=== PATIENT | male | born 1980 | race Caucasian/White ===

== ENCOUNTER 2017-04-14 12:42 | Emergency (ER) | payer OTHER ==
[~2017-04-14] VITALS: Wt 93.9 kg
[~2017-04-14 12:42] MED LIST: ANAPROX DS550 MG PO; CLEOCIN150 MG PO; CLINDAMYCIN HC300 MG PO; CYCLOBENZAPRINE10 MG PO; EES400 MG PO; HYDROCODONE BIT1 T11 PO; IBUPROFEN; MACROBID100 M1 PO; Motrin,Rufen800 MG PO; NORFLEX100 MG PO; PERCOCET 325 MG1 TA2 PO; VICODIN 5-3001 EACH PO; VICODIN 5/500 505 MG PO; VICODIN ES 7501 TAB PO; VOLTAREN50 M1 PO
== END 2017-04-14 14:21 | disposition home or self-care (01) ==
LOC: ED 12:42
DX: S63.501A Unspecified sprain of right wrist, initial encounter (principal); F17.200 Nicotine dependence, unspecified, uncomplicated; Z88.0 Allergy status to penicillin; Z88.1 Allergy status to other antibiotic agents; Z91.040 Latex allergy status; W10.9XXA Fall (on) (from) unspecified stairs and steps, initial encounter; Y93.89 Activity, other specified; Y92.9 Unspecified place or not applicable; Y99.9 Unspecified external cause status

== ENCOUNTER 2017-09-23 23:32 | Emergency (ER) | payer OTHER ==
[~2017-09-23] VITALS: Ht 154.9 cm; Wt 93.9 kg
[2017-09-24 00:01] LABS: HEMATOCRIT 50.7 % (42.0-52.0); HEMOGLOBIN 17.2 g/dl (14.0-18.0); MEAN CORPUSCULAR HGB 30.9 pg (27.0-31.0); MEAN CORPUSCULAR HGB CONC 33.9 g/dl (33.0-37.0); MEAN PLATELET VOLUME 10.4 fl (9.6-12.3); PLATELET COUNT AUTOMATED 346 10*3/uL (130-400); RED BLOOD COUNT 5.57 10*6/uL (4.50-5.90); RED CELL DISTRI WIDTH 13.2 % (0-14.5); WHITE BLOOD COUNT 15.4 10*3/uL (4.8-10.8)
[2017-09-24 00:19] LABS: BILIRUBIN NEGATIVE (NEGATIVE); BLOOD TRACE-LYSED (NEGATIVE); CLARITY CLEAR (CLEAR); COLOR YELLOW (YELLOW); GLUCOSE NEGATIVE (NEGATIVE); KETONE NEGATIVE (NEGATIVE); LEUKO ESTERASE TRACE (NEGATIVE); NITRITE NEGATIVE (NEGATIVE); SPECIFIC GRAVITY <= 1.005 (1.005-1.030); UROBILINOGEN 0.2 E.U./dl (0.2-1.0)
[2017-09-24 00:20] LABS: ALBUMIN 3.8 gm/dl (3.1-4.5); ALKALINE PHOSPHATASE 102 U/L (45-117); BUN 10 mg/dl (7-24); CHLORIDE 107 mmol/L (98-107); CREATININE 1.19 mg/dL (0.70-1.30); POTASSIUM 4.1 mmol/L (3.5-5.1); SGOT/AST 31 IU/L (3-35); SGPT/ALT 48 U/L (12-78); SODIUM 141 mmol/L (136-145); TOTAL PROTEIN 7.9 gm/dL (6.4-8.2)
[2017-09-24 00:23] LABS: ACETAMINOPHEN (TYLENOL) < 2.0 ug/ml (10-30)
[2017-09-24 00:30] LABS: URINE AMPHETAMINES < 1000 (1000ng/ml); URINE BARBITURATES < 200 (200ng/ml); URINE BENZODIAZEPINES < 200 (200ng/ml); URINE CANNABINOIDS (THC) < 50 (50ng/ml); URINE COCAINE < 300 (300ng/ml); URINE METHADONE < 300 (300ng/ml); URINE OPIATES < 300 (300ng/ml)
[2017-09-24 00:36] LABS: ATYPICAL LYMPHS 3 % (0-0); BASOPHILS 1 % (0-1); PLATELET SUFFICIENCY NORMAL (NORMAL); TOTAL CELLS COUNTED 100 #CELLS
[2017-09-24 00:37] LABS: URINE PHENCYCLIDINE < 25 (25ng/ml)
== END 2017-09-24 18:23 | disposition home health service (06) ==
LOC: ED 23:32
PROVIDERS: Student in an Organized Health Care Education/Training Program
DX: R45.851 Suicidal ideations (principal); F17.200 Nicotine dependence, unspecified, uncomplicated; Z88.0 Allergy status to penicillin; Z88.1 Allergy status to other antibiotic agents; Z91.040 Latex allergy status; Z79.899 Other long term (current) drug therapy

== ENCOUNTER 2019-03-09 05:22 | Emergency (ER) | payer SELFPAY ==
[2019-03-09 06:26] LABS: BILIRUBIN NEGATIVE (NEGATIVE); BLOOD 2+ (NEGATIVE); CLARITY CLOUDY (CLEAR); COLOR YELLOW (YELLOW); GLUCOSE NEGATIVE (NEGATIVE); KETONE NEGATIVE (NEGATIVE); LEUKO ESTERASE 2+ (NEGATIVE); NITRITE NEGATIVE (NEGATIVE); SPECIFIC GRAVITY 1.025 (1.005-1.030); UROBILINOGEN 0.2 E.U./dl (0.2-1.0)
[2019-03-09 06:39] LABS: RBC 21-30 rbc/hpf (0-2); WBC TNTC wbc/hpf (0-5)
== END 2019-03-09 06:21 | disposition home or self-care (01) ==
LOC: ED 05:22
PROVIDERS: Emergency Medicine
DX: R30.9 Painful micturition, unspecified (principal); R36.9 Urethral discharge, unspecified; Z20.2 Contact with and (suspected) exposure to infections with a predominantly sexual mode of transmission; Z88.0 Allergy status to penicillin; Z88.1 Allergy status to other antibiotic agents; Z91.040 Latex allergy status; Z79.899 Other long term (current) drug therapy

== ENCOUNTER 2019-03-29 10:45 | Emergency (ER) | payer SELFPAY ==
[~2019-03-29] VITALS: Ht 182.8 cm; Wt 95.3 kg
--- NOTE | ~2019-03-29 | EKG ---
[place], [place] ELECTROCARDIOGRAM REPORT NAME: LORIN SUAREZ JR UNIT #: [id number] ROOM: DOCTOR: CECILY DRAFT REPORT BIRTHDATE: [birth year] [facility] Test Date: 2019-03-29 Test Time: 13:07:22 Pat Name: LORIN SUAREZ Department: Room: Gender: Dry Color Tester: Diamond Solitario : 1980 Requested By: STEFF MARLEY Order Number: [id number] Reading MD: Alex Robles MD Measurements Intervals Morton Rate: 68 P: 32 FL: 163 QRS: -19 QRSD: 101 T: 41 QT: 401 QTc: 427 Interpretive Statements Sinus rhythm Borderline left axis deviation RSR' in V1 or V2, probably normal variant No previous ECG available for comparison Electronically Signed On 03-30-2019 9:11:19 PDT by Alex Robles MD CM:[email or web address]:ELECTROCARDIOGRAM REPORT [id number] STEFF GOODWIN DRAFT REPORT STEFF MARLEY DO
--- NOTE | ~2019-03-29 | EKG ---
[place], [place] ELECTROCARDIOGRAM REPORT NAME: LORIN SUAREZ JR UNIT #: [id number] ROOM: DOCTOR: CECILY DRAFT REPORT BIRTHDATE: [birth year] [facility] Test Date: 2019-03-29 Test Time: 11:09:30 Pat Name: LORIN SUAREZ Department: Room: Gender: M Milk Collector: Diamond Solitario : 1980 Requested By: STEFF MARLEY Order Number: [id number] Reading MD: Alex Robles MD Measurements Intervals [place] Rate: 78 P: 20 MD: 168 QRS: -7 QRSD: 94 T: 13 QT: 378 QTc: 431 Interpretive Statements Sinus rhythm No previous ECG available for comparison Electronically Signed On 03-30-2019 9:10:29 PDT by Alex Robles MD CM:EKGRPT:ELECTROCARDIOGRAM REPORT [id number] STEFF GOODWIN DRAFT REPORT STEFF MARLEY DO
[2019-03-29 11:06] LABS: BASO % 0.4 % (0.0-1.0); EOS # 0.3 10*3/uL (0.0-0.4); EOS % 2.5 % (1.0-4.0); HEMATOCRIT 47.9 % (42.0-52.0); HEMOGLOBIN 15.9 g/dl (14.0-18.0); LYMPH # 3.5 10*3/uL (1.3-4.4); LYMPH % 34.3 % (27.0-41.0); MEAN CELL VOLUME 91.2 fl (80.0-94.0); MEAN CORPUSCULAR HGB 30.3 pg (27.0-31.0); MEAN CORPUSCULAR HGB CONC 33.2 g/dl (33.0-37.0); MEAN PLATELET VOLUME 10.3 fl (9.6-12.3); MONO # 0.8 10*3/uL (0.1-1.0); MONO % 7.8 % (3.0-9.0); NEUT # 5.6 10*3/uL (2.3-7.9); NEUT % 54.7 % (47.0-73.0); PLATELET COUNT AUTOMATED 329 10*3/uL (130-400); RED BLOOD COUNT 5.25 10*6/uL (4.50-5.90); WHITE BLOOD COUNT 10.3 10*3/uL (4.8-10.8)
[2019-03-29 11:17] LABS: ACT PARTIAL THROMBO TIME 26.6 SECONDS (20.0-32.1)
[2019-03-29 11:20] LABS: ALBUMIN 3.6 gm/dl (3.1-4.5); ALKALINE PHOSPHATASE 95 U/L (45-117); BUN 13 mg/dl (7-24); CHLORIDE 108 mmol/L (98-107); CREATININE 0.87 mg/dL (0.70-1.30); LIPASE 84 U/L (73-393); POTASSIUM 4.1 mmol/L (3.5-5.1); SGOT/AST 17 IU/L (3-35); SGPT/ALT 51 U/L (12-78); SODIUM 140 mmol/L (136-145); TOTAL PROTEIN 7.5 gm/dL (6.4-8.2)
[2019-03-29 11:24] LABS: TROPONIN I < 0.015 ng/ml (<0.045)
[2019-03-29] MEDS ORDERED: PHENERGAN25 M3 PO (14:18)
[2019-03-29] MEDS ORDERED: Meclizine25 MG PO (14:18)
== END 2019-03-29 14:31 | disposition home or self-care (01) ==
LOC: ED 10:45
PROVIDERS: Emergency Medicine
DX: R42 Dizziness and giddiness (principal); R55 Syncope and collapse; Z88.0 Allergy status to penicillin; Z88.1 Allergy status to other antibiotic agents; Z91.040 Latex allergy status; Z79.899 Other long term (current) drug therapy

== ENCOUNTER 2020-06-28 09:08 | Emergency (ER) | payer OTHER ==
[~2020-06-28] VITALS: Ht 180.3 cm; Wt 97.5 kg
[~2020-06-28 09:08] MED LIST changes: +Meclizine25 MG PO; +PHENERGAN25 M3 PO
[2020-06-28] MEDS ORDERED: ROBAXIN-750750 MG PO (11:24)
[2020-06-28] MEDS ORDERED: PREDNISONE20 M1 PO (11:24)
== END 2020-06-28 11:28 | disposition home or self-care (01) ==
LOC: ED 09:08
DX: M54.12 Radiculopathy, cervical region (principal); Z88.0 Allergy status to penicillin; Z88.1 Allergy status to other antibiotic agents; Z91.040 Latex allergy status

== ENCOUNTER 2022-12-18 11:18 | Emergency (ER) | payer OTHER ==
[~2022-12-18] VITALS: Ht 182.8 cm; Wt 106.6 kg
[~2022-12-18 11:18] MED LIST changes: +PREDNISONE20 M1 PO; +ROBAXIN-750750 MG PO
[2022-12-18] MEDS ORDERED: PREDNISONE20 M1 PO (13:04)
[2022-12-18] MEDS ORDERED: PROVENTIL HFA6.7 GM INH (13:04)
== END 2022-12-18 13:08 | disposition home or self-care (01) ==
LOC: ED 11:18
DX: J40 Bronchitis, not specified as acute or chronic (principal); Z20.822 Contact with and (suspected) exposure to COVID-19; Z88.0 Allergy status to penicillin; Z88.1 Allergy status to other antibiotic agents; Z91.040 Latex allergy status

== ENCOUNTER 2023-06-30 14:52 | Emergency (ER) | payer OTHER ==
[~2023-06-30] VITALS: Ht 180.3 cm; Wt 104.3 kg
[~2023-06-30 14:52] MED LIST changes: +PROVENTIL HFA6.7 GM INH
== END 2023-06-30 17:23 | disposition home or self-care (01) ==
LOC: ED 14:52
DX: S63.501A Unspecified sprain of right wrist, initial encounter (principal); Z88.0 Allergy status to penicillin; Z88.1 Allergy status to other antibiotic agents; Z91.040 Latex allergy status; Z98.890 Other specified postprocedural states; W01.0XXA Fall on same level from slipping, tripping and stumbling without subsequent striking against object, initial encounter; Y93.89 Activity, other specified; Y92.002 Bathroom of unspecified non-institutional (private) residence as the place of occurrence of the external cause; Y99.8 Other external cause status